=== PATIENT | female | born 1995 | race Caucasian/White ===

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

== ENCOUNTER 2017-09-13 18:38 | Emergency (ER) | payer MEDICAID, OTHER ==
[2017-09-13 18:44] VITALS: BMI 29.1
[2017-09-13 18:49] VITALS: TEMP 98.7
[2017-09-13] MEDS ORDERED: Sodium Chloride 0.9% 1,000 ML IV STA (19:01)
--- NOTE | 2017-09-13 19:32 | ED PDOC ---
Arrival/HPI - General Chief Complaint: Abdominal Pain Time Seen by Provider: 09/13/17 19:00 Historian: Patient - History of Present Illness Narrative History of Present Illness (Text): 09/13/17 19:26 22yo female who present with complaint of crampy suprapubic abdominal pain x one week. States she had vaginal spotting last week that resolved after 2days. States her LMP was in April. She had a baby in January. She reports 2 positive home test. Denies fever, chills, dysuria, vaginal bleedin, nausea, vomiting, back pain, any other complaint. Past Medical History - Provider Review Nursing Documentation Reviewed: Yes - Infectious Disease Hx of Infectious Diseases: None - Psychiatric Hx Substance Use: No Family/Social History - Physician Review Nursing Documentation Reviewed: Yes Family/Social History: Unknown Family HX Smoking Status: Never Smoked Hx Alcohol Use: No Hx Substance Use: No Allergies/Home Meds Allergies/Adverse Reactions: Allergies No Known Allergies Allergy (Verified 01/28/17 09:29) Review of Systems - Physician Review All systems were reviewed & negative as marked: Yes - Review of Systems Constitutional: Normal Eyes: Normal ENT: Normal Respiratory: Normal Cardiovascular: Normal Gastrointestinal: Abdominal Pain. absent: Constipation, Diarrhea, Nausea, Vomiting, Hematochezia, Hematemesis Genitourinary Female: Normal Musculoskeletal: Normal Skin: Normal Neurological: Normal Endocrine: Normal Hemo/Lymphatic: Normal Psychiatric: Normal Physical Exam Vital Signs Reviewed: Yes Vital Signs Temp Pulse Resp BP Pulse Ox 09/13/17 22:17 86 18 107/82 100 09/13/17 20:45 85 16 101/70 99 09/13/17 18:38 98.7 F 89 18 99/64 L 97 Temperature: Afebrile Blood Pressure: Normal Pulse: Regular Respiratory Rate: Normal Appearance: Positive for: Well-Appearing, Non-Toxic, Comfortable Pain Distress: None Mental Status: Positive for: Alert and Oriented X 3 - Systems Exam Head: Present: Atraumatic, Normocephalic Pupils: Present: PERRL Extroacular Muscles: Present: EOMI Conjunctiva: Present: Normal Mouth: Present: Moist Mucous Membranes Neck: Present: Normal Range of Motion Respiratory/Chest: Present: Clear to Auscultation, Good Air Exchange. No: Respiratory Distress, Accessory Muscle Use Cardiovascular: Present: Regular Rate and Rhythm, Normal S1, S2. No: Murmurs Abdomen: No: Tenderness, Distention, Peritoneal Signs, Rebound, Guarding, McBurney's Point Tender, Rovsing's Sign Present Back: Present: Normal Inspection Upper Extremity: Present: Normal Inspection. No: Cyanosis, Edema Lower Extremity: Present: Normal Inspection. No: Edema Neurological: Present: GCS=15, CN II-XII Intact, Speech Normal Skin: Present: Warm, Dry, Normal Color. No: Rashes Psychiatric: Present: Alert, Oriented x 3, Normal Insight, Normal Concentration Medical Decision Making ED Course and Treatment: 09/14/17 01:38 PT in ED for stated history. She denies vaginal bleeding in ED. She was not in any distress in ED. Lab was ordered and wnl Transvaginal US Gestational age: Estimated gestational age of 14 weeks 1 day by measurements. BRET: 03/13/2018 by ultrasound. EFW: 89 g. MATERNAL: Uterus: Unremarkable. No myometrial mass. Cervix: No cervical dilatation or effacement. Adnexa: Ovaries not visualized. No adnexal masses. Free fluid: No significant free fluid. IMPRESSION: 1. Single live intrauterine gestation. Result was DW the pt. she was advised to f/u with her OB. - Lab Interpretations Lab Results: 09/13/17 19:50 09/13/17 19:50 Lab Results 09/13/17 22:16: Urine Color Yellow, Urine Appearance Clear, Urine pH 6.0, Ur Specific Wallace >= 1.030, Urine Protein Negative, Urine Glucose (UA) Negative, Urine Ketones Negative, Urine Blood Negative, Urine Nitrate Negative, Urine Bilirubin Negative, Urine Urobilinogen 0.2, Ur Leukocyte Esterase Negative 09/13/17 19:50: Beta HCG, Quant [id number] H 09/13/17 19:50: Sodium 139, Potassium 3.5 L, Chloride 103, Carbon Dioxide 23, Anion Gap 16, BUN 7, Creatinine 0.4 L, Est GFR ( Amer) > 60, Est GFR (Non -Af Amer) > 60, Random Glucose 82, Calcium 9.5, Total Bilirubin 0.3, AST 23, ALT 27, Alkaline Phosphatase 73, Total Protein 8.1, Albumin 4.7, Globulin 3.4, Albumin/Globulin Ratio 1.4 09/13/17 19:50: PT 11.0, INR 0.97, APTT 26.3 09/13/17 19:50: WBC 9.4, RBC 4.42, Hgb 12.7, Hct 37.2, MCV 84.2, MCH 28.7, MCHC 34.1, RDW 13.2, Plt Count 274, MPV 9.8, Gran % 59.9, Lymph % (Auto) 32.7, [place] % (Auto) 6.1 H, Eos % (Auto) 1.1 L, Baso % (Auto) 0.2, Gran # 5.65, Lymph # ( Auto) 3.1, [place] # (Auto) 0.6, Eos # (Auto) 0.1, Baso # (Auto) 0.02 09/13/17 19:00: Urine HCG, Qual Positive - RAD Interpretation Radiology Orders: 09/13/17 19:01 AGE [US] Stat - Medication Orders Current Medication Orders: Discontinued Medications Sodium Chloride (Sodium Chloride 0.9%) 1,000 mls @ 999 mls/hr IV .Q1H1M STA Stop: 09/13/17 20:01 Last Admin: 09/13/17 20:01 Dose: 999 mls/hr eMAR Start Stop Document 09/13/17 20:01 AD (Rec: 09/13/17 20:02 AD [id number] Intravenous Solution Start Date 09/13/17 Start Time 20:02 Disposition/Present on Arrival - Present on Arrival Any Indicators Present on Arrival: No History of DVT/PE: No History of Uncontrolled Diabetes: No Urinary Catheter: No History of Decub. Ulcer: No History Surgical Site Infection Following: None - Disposition Have Diagnosis and Disposition been Completed?: Yes Diagnosis: , Abdominal pain Disposition: HOME/ ROUTINE Disposition Time: 22:05 Patient Plan: Discharge Condition: STABLE Discharge Instructions (ExitCare): Acute Abdomen (Belly Pain), Adult (DC) Additional Instructions: Follow up with your OB Return to ED for any new or worsening symptoms Referrals: Wilfrido López MD [Staff Provider] - Follow up with primary Forms: Categorical (Telugu)
[2017-09-13 20:25] LABS: BASO # 0.02 K/mm3 (0.0-2.0); BASO % 0.2 % (0.0-3.0); EOS # 0.1 (0.0-0.7); EOS % 1.1 % (1.5-5.0); GRAN # 5.65 (1.4-6.5); GRAN % 59.9 % (50.0-68.0); HEMOGLOBIN 12.7 g/dL (12.0-16.0); LYMPH # 3.1 (1.2-3.4); LYMPH % 32.7 % (22.0-35.0); MEAN CELL VOLUME 84.2 fl (80.0-105.0); MEAN CORPUSCULAR HEMOGLOBIN 28.7 pg (25.0-35.0); MEAN CORPUSCULAR HGB CONC 34.1 g/dl (31.0-37.0); MEAN PLATELET VOLUME 9.8 fl (7.0-11.0); MONO # 0.6 (0.1-0.6); MONO % 6.1 % (1.0-6.0); RBC 4.42 10^6/uL (3.5-6.1); RED CELL DISTRIBUTION WIDTH 13.2 % (11.5-14.5); WHITE BLOOD COUNT 9.4 10^3/ul (4.5-11.0)
[2017-09-13 20:29] LABS: INR 0.97; PARTIAL THROMBOPLASTIN TIME 26.3 Seconds (25.1-36.5)
[2017-09-13 20:30] LABS: ALB/GLOB RATIO 1.4 (1.1-1.8); ALBUMIN 4.7 g/dL (3.0-4.8); ALT/SGPT 27 U/L (7-56); AST/SGOT 23 U/L (14-36); BLOOD UREA NITROGEN 7 mg/dL (7-21); CALCIUM 9.5 mg/dL (8.4-10.5); GFR AFRICAN-AMERICAN > 60; GFR NON-AFRICAN AMERICAN > 60
[2017-09-13 22:20] LABS: URINE APPEARANCE CLEAR (CLEAR); URINE BILIRUBIN NEGATIVE (NEGATIVE); URINE BLOOD NEGATIVE (NEGATIVE); URINE COLOR YELLOW (YELLOW); URINE GLUCOSE (UA) NEGATIVE (NEGATIVE); URINE LEUKOCYTE ESTERASE NEGATIVE Leu/uL (NEGATIVE); URINE PROTEIN NEGATIVE mg/dL (<30 mg/dL); URINE UROBILINOGEN 0.2 E.U./dL (<1 E.U./dL)
[2017-09-13 22:35] VITALS: BP 107/82; PULSE 86; RESP 18; O2SAT 100
--- NOTE | 2017-09-14 12:04 | US ---
Date of service: 09/13/2017 PROCEDURE: ultrasound HISTORY: /abdominal pain COMPARISON: None TECHNIQUE: Standard protocol for this study/examination. FINDINGS: Variable presentation. Anterior Placenta. No evidence of abruption or previa Gestational age derived from LMP unknown. BRET Cannot be ascertained based in the absence of a reliable/ known LMP. Gestational age derived from the following biometric parameters 14 weeks 1 day. BRET 03/13/2018. Biparietal diameter 2.48 cm Head circumference 9.12 cm Abdominal circumference 7.72 cm Femur length 1.35 cm Estimated weight 89.35 g Calculated cardiac rate 147 beats per min. Closed cervix without evidence of effacement or dilatation. IMPRESSION: Fourteen weeks 1 day live intrauterine gestation. Gestational concordance cannot be determined in the absence of reliable LMP. Concordant results (preliminary interpretation) provided by [facility]. Procedure Completed: 20:58. Preliminary ([facility]) Report: Dictated and Authenticated: 21:20. Final Interpretation: 12:08. September 14, 2017.
== END 2017-09-13 22:17 | disposition home or self-care (01) ==
LOC: ED 18:38
DX: O26.891 Other specified pregnancy related conditions, first trimester (principal); R10.9 Unspecified abdominal pain; Z3A.14 14 weeks gestation of pregnancy
CPT/HCPCS: 76815; 80053; 81003; 84702; 84703; 85025; 85610; 85730; 99284; J7030

== ENCOUNTER 2017-09-28 15:21 | Emergency (ER) | payer MEDICAID ==
[2017-09-28 15:22] VITALS: BMI 29.1
== END 2017-09-28 15:55 | disposition left against medical advice (07) ==
LOC: ED 15:21
DX: Z02.89 Encounter for other administrative examinations (principal); R10.9 Unspecified abdominal pain